=== PATIENT | male | born 1995 | race African-American/Black ===

== ENCOUNTER 2025-05-06 18:06 | Observation (INO) ==
[2025-05-06] MEDS: ACETAMINOPHEN 1,000 MG/100 ML VIAL IV STA (18:36)
[2025-05-06] MEDS: SODIUM CHLORIDE 0.9% 1,000 ML IV ONE (18:36)
[2025-05-06 19:07] LABS: Alanine Aminotransferase 15.0 U/L (7-52); Albumin Globulin Ratio 1.1 (0.9-2); Albumin Level 4.3 gm/dl (3.4-5.0); Alkaline Phosphatase 67.0 U/L (34-104); Anion Gap 9.0 (3-11); Bilirubin,Total 2.2 mg/dl (0.2-1.0); Blood Urea Nitrogen 14.0 mg/dl (6-23); Calcium 9.5 mg/dl (8.6-10.3); Carbon Dioxide 22.0 mmol/L (21-32); Chloride 102.0 mmol/L (98-107); Creatinine Clr Calc Pharmacy 83.7 ml/min; Globulin 3.8 gm/dl (2.5-4.0); Glucose 110.0 mg/dl (70-99(Fasting)); Potassium 3.6 mmol/L (3.5-5.1); Sodium 133.0 mmol/L (136-145); Total Protein 8.1 gm/dl (6.0-8.3)
--- NOTE | 2025-05-06 19:39 | XRay Report ---
Clinical History: Cough Technique: PA and lateral views of the chest were obtained Findings: There are no confluent pulmonary infiltrates. The heart size is within normal limits. No pleural effusion or pneumothorax is seen. There is no definite pulmonary nodule. No fracture is noted. No foreign body is seen Impression: No active disease Electronically signed by Renan Dougherty 05-06-2025 7:36 PM
[2025-05-06 19:41] LABS: Chlamydia pneumoniae PCR Not Detected (NotDetected); Coronavirus 229E PCR Not Detected (NotDetected); Coronavirus CoV-2 (COVID19)PCR Not Detected (NotDetected); Coronavirus HKU1 PCR Not Detected (NotDetected); Coronavirus NL63 PCR Not Detected (NotDetected); Coronavirus OC43PCR Not Detected (NotDetected); Human Metapneumovirus PCR Not Detected (NotDetected); Parainfluenza Virus 1 PCR Not Detected (NotDetected); Parainfluenza Virus 2 PCR Not Detected (NotDetected); Parainfluenza Virus 3 PCR Not Detected (NotDetected); Parainfluenza Virus 4 PCR Not Detected (NotDetected); Respiratory Syncytial VirusPCR Not Detected (NotDetected); Rhinovirus/Enterovirus PCR Not Detected (NotDetected)
[2025-05-06 20:24] LABS: Hematocrit (blood only) 29.5 % (42.0-52.0); Hemoglobin 11.0 g/dL (14.0-18.0); Mean Corpuscular Hemoglobin 31.4 pg (25.0-34.0); Mean Corpuscular Volume 84.3 fL (80.0-100.0); Platelet Count 265 K/uL (130-400); RDW Standard Deviation 41.1 fL (36.4-46.3); Red Blood Count 3.50 M/uL (4.70-6.10); White Blood Count 20.60 K/ul (4.8-10.8)
[2025-05-06 20:25] LABS: Immature Granulocytes # (auto) 0.14 K/uL (0.01-0.20); Immature Granulocytes % (auto) 0.7 %; Polychromasia 1+; Target Cells 3+; Toxic Vacuolation 2+
[2025-05-06] MEDS: OPTIRAY 320 125ml IV ONE (20:27)
--- NOTE | 2025-05-06 20:33 | Emergency Department Note ---
Impression & Plan Enterovirus infection, Leukocytosis ED Provider Note CHIEF COMPLAINT: Fever, flulike symptoms, bloody sputum HISTORY OF PRESENTING ILLNESS: Patient is a 29-year-old male who presents to the emergency department today for complaints of flulike symptoms, fever, bloody sputum. He was seen at [facility] earlier today and tested positive for enterovirus with a leukocytosis. They had given him an injection for headache and he had felt better after. They did refer him here due to the bloody sputum. He denies any known sick contact. He reports his symptoms started about 3 days ago. Patient denies chest pain, sob, breathing difficulties, abdominal pain, headache, fevers/chills, blood in stool or urine, any recent illness, or any recent travel. REVIEW OF SYSTEMS: See HPI for pertinent positives and pertinent negatives. ALLERGIES: See below MEDICATIONS: See below PAST MEDICAL HISTORY: See below PHYSICAL EXAM: VITALS: Vitals are noted on the nurse's note and reviewed by myself. GENERAL: Non toxic, in no acute distress, non-diaphoretic. SKIN: Capillary refill <2 sec. EYES: PERRLA. EOMI. Conjunctivae without injection, sclerae without icterus. NOSE: Patent without discharge. MOUTH: Mucous membranes moist. Uvula midline. Airway patent. NECK: Supple without nuchal rigidity. HEART: Regular rate and rhythm without murmurs gallops or rubs. LUNGS: Clear to auscultation bilaterally without wheezes, rales or rhonchi. No retractions or accessory muscle use. ABDOMEN: Positive bowel sounds x 4. Normal tympanic percussion. Soft, nontender to palpation. MUSCULOSKELETAL: No gross musculoskeletal defects. NEURO: Patient was alert and oriented. No focal neurological deficits. DIFFERENTIAL DIAGNOSIS: Differential diagnosis includes: Viral infections, bacterial infections, group A strep- strep throat/pharyngitis, otitis media, sinusitis, epiglottitis, pertussis, allergic rhinitis, vasomotor rhinitis, GERD, mono, foreign body aspiration, among others. ED COURSE AND MEDICAL DECISION MAKING: HISTORY FROM INDEPENDENT HISTORIAN: History was provided by the patient. MONITOR: Continuous terminal gauger: Order was placed for continuous terminal gauger. Patient was placed on the terminal gauger and continuous pulse ox. Patient was noted to be in normal sinus rhythm at an initial rate of 99 bpm per my interpretation. EKG: EKG was interpreted by myself as normal sinus rhythm at a rate of 82 bpm. INTERPRETATION OF LABS: I interpreted the labs with full lab results as below in the lab section of this note. Laboratory results pertinent to the emergent complaint are discussed in the MDM section below. The patient was advised to follow up with their PCP and/or specialist(s) for further outpatient monitoring and management of any abnormal results. INTERPRETATION OF IMAGING: Imaging studies were interpreted by myself and read by radiology as per the imaging section of this note. The patient was advised to follow up with their PCP and/or specialist(s) for further outpatient management of any non-emergent abnormal findings. CHRONIC MEDICAL/SOCIAL CONDITIONS AFFECTING CARE: No social concerns were identified as barriers to patients care. ESCALATION OF CARE CONSIDERED: I considered admission on this patient due to ill appearance and leukocytosis. CONSULTATIONS: I had a meaningful discussion about this patient with Dr. Shrestha who agrees with my assessment and the treatment plan. I consulted with Dr. Washington for admission to the hospital and patient was accepted. SUMMARY: I examined the patient for complaints of flulike symptoms and hemoptysis. A physical exam and history were performed. Nursing notes, EMR, and medication list were personally reviewed. On exam and history, findings are concerning for pneumonia. Chest x-ray was negative. CBC with leukocytosis with white blood cell count of 20.60. CRP was 5. Lactate was 0.7. Procalcitonin was 0.57. Blood cultures sent to the lab. BioFire negative however positive for rhinovirus and enterovirus at [facility]. Hemoglobin was 11. No thrombocytopenia. CMP without emergent findings. Troponin was 6.7. D-dimer was 6530. CTA PE rule out was ordered and showed no PE. Patient was given 1 L of normal saline and 1 g of IV Tylenol here in the emergency department with improvement in pain and discomfort. Patient started on Rocephin 2 g. Due to the patients leukocytosis and poor appearance, I consulted with Dr. Washington for admission. The patient was accepted. DIAGNOSIS: Leukocytosis, enterovirus TREATMENT PLAN/DISCHARGE INSTRUCTIONS: Admit to hospitalist services. The chart was completed utilizing [employer] voice recognition software.Grammatical errors, random word insertions, pronoun errors, and incomplete sentences are an occasional consequence of this system due to software limitations, ambient noise, and hardware issues.Any formal questions or concerns about the content, text, or information contained within the body of this dictation should be directly addressed to the physician for clarification. Past Med/Surg History Problem List (Updated 05/07/25 @ 22:59 by GUTIERREZ Clarke) Leukocytosis (Acute) Secondary pneumonia Sickle cell anemia Enterovirus infection (Acute) Medical History (Updated 05/07/25 @ 22:59 by GUTIERREZ Clarke) No significant past medical history Surgical History (Updated 05/07/25 @ 03:52 by Dominique Washington DO) No significant past surgical history Family History (Updated 05/07/25 @ 03:52 by Dominique Washington DO) Other Family history non-contributory Social History Smoking Status: Never smoker Hx Alcohol Use: Yes Hx Substance Use: No Preferred Language: Turkmen Communication Ability: Effective Research Spec Required: No Beliefs That Will Affect Care: None Current Living Situation: Other Current Living Situation Comment: 2 roommates Other Information That Helps Us Care for You: No Feels Safe at Home: Yes Safety Concerns: Feels Safe At This Time Assistive Devices: None Allergies Allergies Allergy/AdvReac Type Severity Reaction Status Date / Time No Known Allergies Allergy Unverified 05/06/25 20:28 Home Meds Home Medications Medication Instructions Recorded Confirmed No Known Home Medications 05/06/25 05/06/25 Results & Data (ED) Vital Signs Vital Signs - 24 hr 05/06/25 18:12 05/06/25 19:18 05/06/25 19:20 Temperature 38 C H 36.9 C Temperature Source Temporal Artery Scan Oral Pulse Rate 107 H 99 H Pulse Rate [Apical] 95 H Pulse Rate from SpO2 Sensor Respiratory Rate 18 18 Respiratory Effort / Characteristics Non-Labored Spontaneous Respiratory Depth Normal Blood Pressure 101/58 L Blood Pressure [Left Arm] 93/48 L Blood Pressure Mean 72 Blood Pressure Mean [Left Arm] 63 Pulse Oximetry 96 94 Oxygen Delivery Method Room Air Room Air Sepsis Recent Fever Within 48 Hours Yes Sepsis New/Unexplained Change in Mental Status No Sepsis Action Taken by Nursing No Action Required 05/06/25 19:21 05/06/25 20:00 05/06/25 21:00 Temperature Temperature Source Pulse Rate 96 H 91 H 87 Pulse Rate [Apical] Pulse Rate from SpO2 Sensor 96 H 93 H 88 Respiratory Rate 15 17 20 Respiratory Effort / Characteristics Respiratory Depth Blood Pressure 99/44 L 98/52 L 101/58 L Blood Pressure [Left Arm] Blood Pressure Mean 62 67 72 Blood Pressure Mean [Left Arm] Pulse Oximetry 94 96 97 Oxygen Delivery Method Room Air Sepsis Recent Fever Within 48 Hours Sepsis New/Unexplained Change in Mental Status Sepsis Action Taken by Nursing 05/06/25 21:30 05/06/25 22:00 Temperature Temperature Source Pulse Rate 93 H 91 H Pulse Rate [Apical] Pulse Rate from SpO2 Sensor 93 H 94 H Respiratory Rate 15 16 Respiratory Effort / Characteristics Respiratory Depth Blood Pressure 91/54 L 126/61 Blood Pressure [Left Arm] Blood Pressure Mean 66 82 Blood Pressure Mean [Left Arm] Pulse Oximetry 98 100 Oxygen Delivery Method Sepsis Recent Fever Within 48 Hours Sepsis New/Unexplained Change in Mental Status Sepsis Action Taken by Nursing Laboratory Data 05/07/25 06:20 05/07/25 18:59 Lab Results 05/06/25 05/06/25 Range/Units 18:34 21:12 WBC 20.60 H (4.8-10.8) K/ul RBC 3.50 L (4.70-6.10) M/uL Hgb 11.0 L (14.0-18.0) g/dL Hct 29.5 L (42.0-52.0) % MCV 84.3 (80.0-100.0) fL MCH 31.4 (25.0-34.0) pg MCHC 37.3 H (32.0-36.0) g/dL RDW Std Deviation 41.1 (36.4-46.3) fL RDW Coeff of Vick 13.7 (11.5-14.5) % Plt Count 265 (130-400) K/uL MPV 11.4 (9.4-12.4) fL Immature Gran % (Auto) 0.7 % Neut % (Auto) 79.9 % Lymph % (Auto) 12.5 % [place] % (Auto) 6.5 % Eos % (Auto) 0.2 % Baso % (Auto) 0.2 % Neut # (Auto) 16.35 H (1.40-6.50) K/uL Lymph # (Auto) 2.56 (1.20-3.40) K/uL [place] # (Auto) 1.33 H (0.11-0.59) K/uL Eos # (Auto) 0.05 (0.00-0.50) K/uL Baso # (Auto) 0.05 (0.00-0.20) K/uL Immature Gran # (Auto) 0.14 (0.01-0.20) K/uL Absolute Nucleated RBC 0.13 H (0.00-0.12) K/uL Nucleated RBC % (auto) 0.6 % Blood Smear Review Toxic Vacuolation 2+ Polychromasia 1+ Target Cells 3+ D-Dimer 6530 H* (0-500) ug/L FEU Sodium 133 L (136-145) mmol/L Potassium 3.6 (3.5-5.1) mmol/L Chloride 102 (98-107) mmol/L Carbon Dioxide 22 (21-32) mmol/L Anion Gap 9 (3-11) BUN 14 (6-23) mg/dl Creatinine 1.26 (0.6-1.4) mg/dl Est Cr Clr Drug Dosing 83.7 ml/min eGFR 79.18 BUN/Creatinine Ratio 11.1 (10-20) Glucose 110 H (70-99(Fasting)) mg/dl Lactate 0.7 (0.4-2.0) mmol/L Calcium 9.5 (8.6-10.3) mg/dl Total Bilirubin 2.2 H (0.2-1.0) mg/dl AST 25 (13-39) U/L ALT 15 (7-52) U/L Alkaline Phosphatase 67 (34-104) U/L Troponin I High Sens 6.7 (0-20) pg/ml C-Reactive Protein 5.00 H (0-0.5) mg/dl Total Protein 8.1 (6.0-8.3) gm/dl Albumin 4.3 (3.4-5.0) gm/dl Globulin 3.8 (2.5-4.0) gm/dl Albumin/Globulin Ratio 1.1 (0.9-2) Procalcitonin 0.57 H (0-0.5) ng/ml Adenovirus (PCR) Not Detected (NotDetected) B. pertussis DNA (PCR) Not Detected (NotDetected) B.parapertussis DNA PCR Not Detected (NotDetected) C. pneumoniae DNA (PCR) Not Detected (NotDetected) Coronavirus OC43 (PCR) Not Detected (NotDetected) Coronavirus HKU1 (PCR) Not Detected (NotDetected) Coronavirus 229E (PCR) Not Detected (NotDetected) SARS-CoV-2 (PCR) Not Detected (NotDetected) Coronavirus NL63 (PCR) Not Detected (NotDetected) Human Metapneumovir PCR Not Detected (NotDetected) Influenza Type A (PCR) Not Detected (NotDetected) Influenza Type B (PCR) Not Detected (NotDetected) M. pneumoniae (PCR) Not Detected (NotDetected) Parainfluenza 1 (PCR) Not Detected (NotDetected) Parainfluenza 2 (PCR) Not Detected (NotDetected) Parainfluenza 3 (PCR) Not Detected (NotDetected) Parainfluenza 4 (PCR) Not Detected (NotDetected) RSV (PCR) Not Detected (NotDetected) Entero/Rhino (PCR) Not Detected (NotDetected) Administered Medications Acetaminophen (Acetaminophen 325 Mg Tab) 650 mg PO Q4H PRN PRN Reason: Pain or Fever Stop: 06/06/25 00:44 Last Admin: 05/07/25 19:17 Dose: 650 mg Documented By: devon Admin: 05/07/25 12:47 Dose: 650 mg Documented By: sony Admin: 05/07/25 08:39 Dose: 650 mg Documented By: sony Admin: 05/07/25 03:29 Dose: 650 mg Documented By: KAREN Ceftriaxone Sodium (Rocephin) 2,000 mg in 50 mls @ 100 mls/hr IV Q24H VANIA Stop: 05/09/25 21:59 Last Infusion: 05/07/25 22:35 Dose: Infused Documented By: devon Admin: 05/07/25 22:05 Dose: 100 mls/hr Documented By: devon Discontinued Medications Sodium Chloride (Nss) 1,000 mls @ 999 mls/hr IV .Q1H1M ONE Stop: 05/06/25 19:20 Last Infusion: 05/06/25 20:01 Dose: Infused Documented By: Admin: 05/06/25 18:36 Dose: 999 mls/hr Documented By: rubens Acetaminophen (Ofirmev) 1,000 mg in 100 mls @ 400 mls/hr IV NOW STA Stop: 05/06/25 18:34 Last Infusion: 05/06/25 19:23 Dose: Infused Documented By: Admin: 05/06/25 18:36 Dose: 400 mls/hr Documented By: rubens Ceftriaxone Sodium (Rocephin) 2,000 mg in 50 mls @ 100 mls/hr IV NOW STA Stop: 05/06/25 22:46 Last Infusion: 05/07/25 00:09 Dose: Infused Documented By: Admin: 05/06/25 22:49 Dose: 100 mls/hr Documented By: BO Lactated Ringer's (Lr) 1,000 mls @ 100 mls/hr IV .Q10H VANIA Stop: 05/07/25 21:25 Last Infusion: 05/07/25 22:06 Dose: Infused Documented By: devon Infusion: 05/07/25 12:38 Dose: 100 mls/hr Documented By: ijw Admin: 05/07/25 11:50 Dose: 80 mls/hr Documented By: ijw Infusion: 05/07/25 11:50 Dose: Infused Documented By: ijroseline Admin: 05/07/25 00:58 Dose: 80 mls/hr Documented By: KAREN Ioversol (Optiray 320 125ml) 115 ml IV ONCE ONE Stop: 05/06/25 20:27 Last Admin: 05/06/25 20:27 Dose: 115 ml Documented By: RADHA Ioversol (Optiray 320 100ml) 94 ml IV ONCE ONE Stop: 05/07/25 12:22 Last Admin: 05/07/25 12:21 Dose: 94 ml Documented By: HUGOF Imaging Data Radiologist's Impression: Chest X-Ray 05/06/25 18:21 Clinical History: Cough Technique: PA and lateral views of the chest were obtained Findings: There are no confluent pulmonary infiltrates. The heart size is within normal limits. No pleural effusion or pneumothorax is seen. There is no definite pulmonary nodule. No fracture is noted. No foreign body is seen Impression: No active disease Electronically signed by Renan Dougherty 05-06-2025 7:36 PM Chest CTA 05/06/25 20:09 Exam(s): CTA CHEST IV Amt: 115 ml optiray 320 EXAM: CT Angiography Chest With Intravenous Contrast CLINICAL HISTORY: Evaluate for PE. TECHNIQUE: Axial computed tomographic angiography images of the chest with intravenous contrast. CTDI is 24 mGy and DLP is 516.82 mGy-cm. Automated exposure control was utilized for the study. A dose lowering technique was utilized adhering to the principles of ALARA. MIP reconstructed images were created and reviewed. COMPARISON: No relevant prior studies available. FINDINGS: Limitations: There is respiratory artifact, which degrades image quality on multiple image slices. Pulmonary arteries: Accounting for limitations with respiratory artifact, there is no definite evidence for pulmonary embolism. Aorta: No acute findings. No thoracic aortic aneurysm. Lungs: No focal airspace consolidation. Pleural space: No significant abnormality. No significant effusion. No pneumothorax. Heart: No significant abnormality. No cardiomegaly. No significant pericardial effusion. Bones/joints: No acute fracture. No dislocation. Soft tissues: No significant abnormality. Lymph nodes: No significant abnormality. No enlarged lymph nodes. IMPRESSION: 1. Accounting for limitations with respiratory artifact, there is no definite evidence for pulmonary embolism. 2. No focal airspace consolidation. No pleural effusion or pneumothorax. Electronically signed by: Agus Del Cid MD 05/06/25 21:12 PM Discharge Plan Visit Data Chief Complaint: Flu Like Symptoms Stated Complaint: FLU-LIKE SX, SENT BY [facility] ED Provider: Talon Shrestha ED Midlevel Provider: Ivette aMscorro Discharge Problem: Enterovirus infection, Leukocytosis Patient Disposition: Admitted As Inpatient Condition: Good Discharge Instructions Interventions: ED Discharge Assessment Last Done: 05/07/25 00:10 Discharge Problem: Leukocytosis Qualifiers: Leukocytosis type: unspecified Qualified Code(s): D72.829 - Elevated white blood cell count, unspecified
--- NOTE | 2025-05-06 21:13 | CT Scan Report ---
Exam(s): CTA CHEST IV Amt: 115 ml optiray 320 EXAM: CT Angiography Chest With Intravenous Contrast CLINICAL HISTORY: Evaluate for PE. TECHNIQUE: Axial computed tomographic angiography images of the chest with intravenous contrast. CTDI is 24 mGy and DLP is 516.82 mGy-cm. Automated exposure control was utilized for the study. A dose lowering technique was utilized adhering to the principles of ALARA. MIP reconstructed images were created and reviewed. COMPARISON: No relevant prior studies available. FINDINGS: Limitations: There is respiratory artifact, which degrades image quality on multiple image slices. Pulmonary arteries: Accounting for limitations with respiratory artifact, there is no definite evidence for pulmonary embolism. Aorta: No acute findings. No thoracic aortic aneurysm. Lungs: No focal airspace consolidation. Pleural space: No significant abnormality. No significant effusion. No pneumothorax. Heart: No significant abnormality. No cardiomegaly. No significant pericardial effusion. Bones/joints: No acute fracture. No dislocation. Soft tissues: No significant abnormality. Lymph nodes: No significant abnormality. No enlarged lymph nodes. IMPRESSION: 1. Accounting for limitations with respiratory artifact, there is no definite evidence for pulmonary embolism. 2. No focal airspace consolidation. No pleural effusion or pneumothorax. Electronically signed by: Agus Del Cid MD 05/06/25 21:12 PM
[2025-05-06] MEDS: cefTRIAXone SODIUM 2,000 MG/50 ML BAG IV STA (22:49)
--- NOTE | 2025-05-06 23:04 | History & Physical Report ---
Date of Service May 06, 2025 Assessment & Plan (1) Enterovirus infection: Plan 29yo male with no significant past medical or surgical history presenting with three days of viral symptoms, headache/fever/chills/cough with some hemoptysis/body aches. Marked leukocytosis. #Enterovirus infection -Observation to medical -Isolation precautions -IVF - LR at 100mL/hr x 2L ordered -Tylenol PRN -Zofran PRN History of Present Illness Chief Complaint: flu-like symptoms Primary Care Provider: [facility] Donaldo Nash is a 29yo male with no significan medical or surgical history presenting with three days of flu-like symptoms. Patient reports fever, chills, body aches as well as cough productive for blood-streaked sputum. He has some shortness of breath. Ongoing severe headache. He denies chest pain, nausea, vomiting, diarrhea. 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 No sick contacts. Patient was seen at [facility] and found to be POSITIVE for Enterovirus. ER Course: NSS x 1L Tylenol Ceftriaxone 2gm Allergies Allergy/AdvReac Type Severity Reaction Status Date / Time No Known Allergies Allergy Unverified 05/06/25 20:28 Home Medications Medication Instructions Recorded Confirmed Type No Known Home Medications 05/06/25 05/06/25 History Past Med/Surg History Problem List (Updated 05/07/25 @ 03:53 by Dominique Washington DO) Enterovirus infection Medical History (Updated 05/07/25 @ 03:53 by Dominique Washington DO) No significant past medical history Surgical History (Updated 05/07/25 @ 03:52 by Dominique Washington DO) No significant past surgical history Family History (Updated 05/07/25 @ 03:52 by Dominique Washington DO) Other Family history non-contributory Social History Smoking Status: Never smoker Hx Alcohol Use: Yes Hx Substance Use: No Preferred Language: Maltese Communication Ability: Effective Tobacco Baler Required: No Beliefs That Will Affect Care: None Current Living Situation: Other Current Living Situation Comment: 2 roommates Other Information That Helps Us Care for You: No Feels Safe at Home: Yes Safety Concerns: Feels Safe At This Time Assistive Devices: None Review of Systems Review of Systems: All systems reviewed & are unremarkable except as noted in HPI & below Physical Exam Physical Exam: General: patient resting comfortably, NAD, non-toxic in appearance, AA&O x 4 Skin: warm, dry, intact, no rashes or lesions HEENT: NC/AT, PERRL, EOMI, anicteric sclera, conjunctiva without injection, external ear normal to inspection and nontender, nares patent, moist mucus membranes, dentition intact, no oropharyngeal lesions, neck supple, trachea midline, no LAD, no thyromegaly, no JVD Heart: +S1/S2, regular, no m/r/g Lungs: equal air entry bilaterally, no rales/rhonchi/wheezes Abd: +BS, soft, NT/ND, no masses/organomegaly/ascites Ext: warm, 2+ pulses in UE/LE bilaterally, no clubbing/cyanosis or edema Neuro: nonfocal, patient AA&O x 4, speech intact, no facial droop, moving all extremities on command with equal strength 5/5 Results & Data Results & Data Vital Signs (Past 12 Hours) Vital Signs Temp Pulse Pulse Resp BP BP Pulse Ox 05/06/25 22:00 91 H 16 126/61 100 05/06/25 21:30 93 H 15 91/54 L 98 05/06/25 21:00 87 20 101/58 L 97 05/06/25 20:00 91 H 17 98/52 L 96 05/06/25 19:21 96 H 15 99/44 L 94 05/06/25 19:20 99 H 05/06/25 19:18 36.9 C 95 H 18 93/48 L 94 05/06/25 18:12 38 C H 107 H 18 101/58 L 96 O2 Del Method 05/06/25 22:00 05/06/25 21:30 05/06/25 21:00 05/06/25 20:00 05/06/25 19:21 Room Air 05/06/25 19:20 05/06/25 19:18 Room Air 05/06/25 18:12 Room Air Laboratory Results Laboratory Results WBC 20.60 K/ul (4.8-10.8) H 05/06/25 18:34 RBC 3.50 M/uL (4.70-6.10) L 05/06/25 18:34 Hgb 11.0 g/dL (14.0-18.0) L 05/06/25 18:34 Hct 29.5 % (42.0-52.0) L 05/06/25 18:34 MCV 84.3 fL (80.0-100.0) 05/06/25 18:34 MCH 31.4 pg (25.0-34.0) 05/06/25 18:34 MCHC 37.3 g/dL (32.0-36.0) H 05/06/25 18:34 RDW Std Deviation 41.1 fL (36.4-46.3) 05/06/25 18:34 RDW Coeff of Vick 13.7 % (11.5-14.5) 05/06/25 18:34 Plt Count 265 K/uL (130-400) 05/06/25 18:34 MPV 11.4 fL (9.4-12.4) 05/06/25 18:34 Immature Gran % (Auto) 0.7 % 05/06/25 18:34 Neut % (Auto) 79.9 % 05/06/25 18:34 Lymph % (Auto) 12.5 % 05/06/25 18:34 [place] % (Auto) 6.5 % 05/06/25 18:34 Eos % (Auto) 0.2 % 05/06/25 18:34 Baso % (Auto) 0.2 % 05/06/25 18:34 Neut # (Auto) 16.35 K/uL (1.40-6.50) H 05/06/25 18:34 Lymph # (Auto) 2.56 K/uL (1.20-3.40) 05/06/25 18:34 [place] # (Auto) 1.33 K/uL (0.11-0.59) H 05/06/25 18:34 Eos # (Auto) 0.05 K/uL (0.00-0.50) 05/06/25 18:34 Baso # (Auto) 0.05 K/uL (0.00-0.20) 05/06/25 18:34 Immature Gran # (Auto) 0.14 K/uL (0.01-0.20) 05/06/25 18:34 Absolute Nucleated RBC 0.13 K/uL (0.00-0.12) H 05/06/25 18:34 Nucleated RBC % (auto) 0.6 % 05/06/25 18:34 Toxic Vacuolation 2+ 05/06/25 18:34 Polychromasia 1+ 05/06/25 18:34 Target Cells 3+ 05/06/25 18:34 D-Dimer 6530 ug/L FEU (0-500) H* 05/06/25 18:34 Sodium 133 mmol/L (136-145) L 05/06/25 18:34 Potassium 3.6 mmol/L (3.5-5.1) 05/06/25 18:34 Chloride 102 mmol/L (98-107) 05/06/25 18:34 Carbon Dioxide 22 mmol/L (21-32) 05/06/25 18:34 Anion Gap 9 (3-11) 05/06/25 18:34 BUN 14 mg/dl (6-23) 05/06/25 18:34 Creatinine 1.26 mg/dl (0.6-1.4) 05/06/25 18:34 Est Cr Clr Drug Dosing 83.7 ml/min 05/06/25 18:34 eGFR 79.18 05/06/25 18:34 BUN/Creatinine Ratio 11.1 (10-20) 05/06/25 18:34 Glucose 110 mg/dl (70-99(Fasting)) H 05/06/25 18:34 Lactate 0.7 mmol/L (0.4-2.0) 05/06/25 21:12 Calcium 9.5 mg/dl (8.6-10.3) 05/06/25 18:34 Total Bilirubin 2.2 mg/dl (0.2-1.0) H 05/06/25 18:34 AST 25 U/L (13-39) 05/06/25 18:34 ALT 15 U/L (7-52) 05/06/25 18:34 Alkaline Phosphatase 67 U/L (34-104) 05/06/25 18:34 Troponin I High Sens 6.7 pg/ml (0-20) 05/06/25 18:34 C-Reactive Protein 5.00 mg/dl (0-0.5) H 05/06/25 18:34 Total Protein 8.1 gm/dl (6.0-8.3) 05/06/25 18:34 Albumin 4.3 gm/dl (3.4-5.0) 05/06/25 18:34 Globulin 3.8 gm/dl (2.5-4.0) 05/06/25 18:34 Albumin/Globulin Ratio 1.1 (0.9-2) 05/06/25 18:34 Procalcitonin 0.57 ng/ml (0-0.5) H 05/06/25 18:34 Adenovirus (PCR) Not Detected (NotDetected) 05/06/25 18:34 B. pertussis DNA (PCR) Not Detected (NotDetected) 05/06/25 18:34 B.parapertussis DNA PCR Not Detected (NotDetected) 05/06/25 18:34 C. pneumoniae DNA (PCR) Not Detected (NotDetected) 05/06/25 18:34 Coronavirus OC43 (PCR) Not Detected (NotDetected) 05/06/25 18:34 Coronavirus HKU1 (PCR) Not Detected (NotDetected) 05/06/25 18:34 Coronavirus 229E (PCR) Not Detected (NotDetected) 05/06/25 18:34 SARS-CoV-2 (PCR) Not Detected (NotDetected) 05/06/25 18:34 Coronavirus NL63 (PCR) Not Detected (NotDetected) 05/06/25 18:34 Human Metapneumovir PCR Not Detected (NotDetected) 05/06/25 18:34 Influenza Type A (PCR) Not Detected (NotDetected) 05/06/25 18:34 Influenza Type B (PCR) Not Detected (NotDetected) 05/06/25 18:34 M. pneumoniae (PCR) Not Detected (NotDetected) 05/06/25 18:34 Parainfluenza 1 (PCR) Not Detected (NotDetected) 05/06/25 18:34 Parainfluenza 2 (PCR) Not Detected (NotDetected) 05/06/25 18:34 Parainfluenza 3 (PCR) Not Detected (NotDetected) 05/06/25 18:34 Parainfluenza 4 (PCR) Not Detected (NotDetected) 05/06/25 18:34 RSV (PCR) Not Detected (NotDetected) 05/06/25 18:34 Entero/Rhino (PCR) Not Detected (NotDetected) 05/06/25 18:34 Impressions Chest X-Ray 05/06/25 18:21 Clinical History: Cough Technique: PA and lateral views of the chest were obtained Findings: There are no confluent pulmonary infiltrates. The heart size is within normal limits. No pleural effusion or pneumothorax is seen. There is no definite pulmonary nodule. No fracture is noted. No foreign body is seen Impression: No active disease Electronically signed by Renan Dougherty 05-06-2025 7:36 PM Chest CTA 05/06/25 20:09 Exam(s): CTA CHEST IV Amt: 115 ml optiray 320 EXAM: CT Angiography Chest With Intravenous Contrast CLINICAL HISTORY: Evaluate for PE. TECHNIQUE: Axial computed tomographic angiography images of the chest with intravenous contrast. CTDI is 24 mGy and DLP is 516.82 mGy-cm. Automated exposure control was utilized for the study. A dose lowering technique was utilized adhering to the principles of ALARA. MIP reconstructed images were created and reviewed. COMPARISON: No relevant prior studies available. FINDINGS: Limitations: There is respiratory artifact, which degrades image quality on multiple image slices. Pulmonary arteries: Accounting for limitations with respiratory artifact, there is no definite evidence for pulmonary embolism. Aorta: No acute findings. No thoracic aortic aneurysm. Lungs: No focal airspace consolidation. Pleural space: No significant abnormality. No significant effusion. No pneumothorax. Heart: No significant abnormality. No cardiomegaly. No significant pericardial effusion. Bones/joints: No acute fracture. No dislocation. Soft tissues: No significant abnormality. Lymph nodes: No significant abnormality. No enlarged lymph nodes. IMPRESSION: 1. Accounting for limitations with respiratory artifact, there is no definite evidence for pulmonary embolism. 2. No focal airspace consolidation. No pleural effusion or pneumothorax. Electronically signed by: Agus Del Cid MD 05/06/25 21:12 PM PG Care Time/CCT Total # of Minutes Spent Total Time Spent with Patient: Total time spent is greater than 50% in coordination of care (as documented) at patient's floor/unit and/or counseling patient: Coding Level of Care Code 71292 INT INP/OBS CARE 2/55MIN Diagnoses Enterovirus infection B34.1
[2025-05-07] MEDS ORDERED: DOCUSATE SODIUM 100 MG CAP PO PRN (00:45)
[2025-05-07] MEDS ORDERED: ONDANSETRON INJ 2 MG/ML 2 ML VIAL IV PRN (00:45)
[2025-05-07] MEDS: LACTATED RINGER'S 1,000 ML IV SCH (00:58)
[2025-05-07] MEDS: ACETAMINOPHEN 325 MG TAB PO PRN (03:29)
[2025-05-07 07:10] LABS: Alanine Aminotransferase 13.0 U/L (7-52); Albumin Level 3.9 gm/dl (3.4-5.0); Alkaline Phosphatase 57.0 U/L (34-104); Anion Gap 6.0 (3-11); Bilirubin,Total 1.8 mg/dl (0.2-1.0); Blood Urea Nitrogen 15.0 mg/dl (6-23); Calcium 8.4 mg/dl (8.6-10.3); Carbon Dioxide 24.0 mmol/L (21-32); Chloride 104.0 mmol/L (98-107); Creatinine Clr Calc Pharmacy 93.1 ml/min; Glucose 113.0 mg/dl (70-99(Fasting)); Potassium 3.6 mmol/L (3.5-5.1); Sodium 134.0 mmol/L (136-145); Total Protein 7.1 gm/dl (6.0-8.3)
[2025-05-07 07:57] LABS: Hematocrit (blood only) 33.0 % (42.0-52.0); Hemoglobin 12.0 g/dL (14.0-18.0); Mean Corpuscular Hemoglobin 30.0 pg (25.0-34.0); Mean Corpuscular Volume 82.5 fL (80.0-100.0); Platelet Count 250 K/uL (130-400); RDW Standard Deviation 41.4 fL (36.4-46.3); Red Blood Count 4.00 M/uL (4.70-6.10); White Blood Count 26.15 K/ul (4.8-10.8)
[2025-05-07 08:37] LABS: ALC (manual) 2.62 K/uL (1.2-3.4); ANC (manual) 20.66 K/uL (1.4-6.5); Polychromasia 1+; Target Cells 3+; Toxic Vacuolation 2+
[2025-05-07] MEDS: OPTIRAY 320 100ml IV ONE (12:21)
--- NOTE | 2025-05-07 12:50 | CT Scan Report ---
CT SCAN OF THE ABDOMEN AND PELVIS WITH IV CONTRAST CLINICAL HISTORY: Right lower quadrant abdominal pain. Fever and leukocytosis. COMPARISON STUDY: No priors. TECHNIQUE: Following the IV administration of 94 cc of Optiray 320, CT scan of the abdomen and pelvi s is performed from the lung bases to the proximal femora. Images are reviewed in the axial, sagittal , and coronal planes. IV contrast was administered without complication. A dose lowering technique wa s utilized adhering to the principles of ALARA. CT DOSE: 483.45 mGy.cm FINDINGS: Lung bases: The heart is normal in size and without pericardial effusion. There is mild bibasilar sca rring/atelectasis. No airspace consolidation or pleural effusion is seen. There is cystic change vers us mild emphysema noted at the lung bases. Liver: The contrast-enhanced liver is normal in size, contour, and attenuation. There is no intrahepa tic biliary ductal dilatation. The hepatic veins and portal veins are patent. Gallbladder: Layering hyperdense material in the gallbladder could represent gallstones versus cristina ously excreted contrast Spleen: The spleen is atrophic and calcified. Pancreas: Unremarkable. Adrenal glands: Unremarkable. Kidneys: The contrast enhanced kidneys are normal in size and without hydronephrosis. The kidneys enh ance symmetrically. Abdominal vasculature: The abdominal aorta is normal in course and caliber. Bowel: There is moderate constipation. No bowel obstruction is seen. There are fluid-filled loops of small bowel. No bowel wall thickening or surrounding inflammation is seen. The appendix is normal as visualized. Peritoneum: There is no intraperitoneal free air or abdominal ascites. Lymphadenopathy: None. Pelvic viscera: The bladder is distended but otherwise normal as imaged. The urine appears slightly h yperdense, likely related to excreted contrast. The prostate and seminal vesicles are normal as visua lized. Skeletal structures: No lytic or blastic lesions are seen. IMPRESSION: 1. There are fluid-filled loops of small bowel, with no significant bowel wall thickening or surround ing inflammation. This is a nonspecific finding and could be seen in the setting of an enteritis. Cor relate clinically. 2. Moderate constipation. 3. Normal appendix. 4. The spleen is atrophic and densely calcified, which can be seen in the setting of sickle cell dise ase. Correlate with the medical history. 5. There are small pulmonary cysts versus mild emphysematous change noted at the lung bases. 6. There is cholelithiasis versus vicariously excreted contrast within the gallbladder. 7. Additional findings as above. ACT 112: Negative or not required by law. Electronically signed by: Juan Carlos Hawkins M.D. 05/07/2025 12:48 PM
--- NOTE | 2025-05-07 13:28 | Hospitalist Progress Note ---
Date of Service May 07, 2025 Assessment & Plan (1) Enterovirus infection: Plan: Febrile illness, 3 days of fever/chills Was enterovirus positive, however despite having a BioFire negative on several days of symptoms continues to have high fevers and appears clinically unwell. Procalcitonin is elevated suggestive of bacterial secondary infection. Could be slight rise from renal dysfunction although his creatinine is at baseline, lactate was normal, he is voiding normally. He endorses intermittent headaches which come and go with his fever in the last 3 days. He reports in the last 3 months he has had occasional morning headaches which go away but have awakened him from sleep. 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 He did have fevers around that time which improved and he thought was a viral illness and recovered from this. He reports he felt well through the summer and early fall and did not have tertian/~q48 hour fever suggestive of Plasmodium vivax. He has been here for several months and is outside of the expected window for open of symptoms related to dengue. CHIKV unlikely and no joint pain. HIV pending. AST/ALT are not elevated suggestive of hepatitis. CTAchest with no evidence of PE. No airspace consolidations. No pleural effusion or pneumothorax CTA/P: Fluid-filled loops of small bowel consistent with enteritis. Normal appendix. Moderate constipation. Small pulmonary cyst versus mild emphysematous changes at lung bases. Cholelithiasis versus vicarious excreted contrast within the gallbladder. Spleen is atrophic and densely calcified consistent with sickle cell disease. Total bilirubin is elevated to chest from some intravascular hemolysis related to his sickle disease versus sickle trait. Transaminitis and alk phos are not elevated, profile is not consistent with obstructive biliary disease Peripheral smear added. Target cells, polychromasia, irregular cells noted compatible with SC versus hemoglobin C disease. No parasites noted Hemoglobin electrophoresis pending CTA/P shows calcified atrophic spleen consistent with sickle disease.. Some enteritis. He denies diarrhea. Bilirubin is elevated, suspect some hemolysis. He denies bleeding Rocephin continued HIV pending. Monospot pending CMV/EBV titers deferred pending above workup He reports he does not think that he has had any vaccinations. 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 1) ?LP for definitive bacterial meningitis eval. He does not have nuchal rigidity at the be dside, and has had some intermittent photosensitivity although none at time of reassessment. Unlikely to be the cause of his headaches in the last 3 months as he would have had severe deterioration over that timeframe; however he has acutely worsened on the last 3 days with new intermittent photophobia may be functionally asplenic and unvaccinated and at increased risk of this. Agree that on exam meningitis is lower on the differential however do recommend getting this to fully exclude diagnosis. IR guided LP ordered Headache - He reports intermittent headache of around 3 months. Denies vision change. No focal weakness or extremity changes. No loss of consciousness. No history of seizures. In the previous 3 months he has had headache in the morning which sometimes awaken him from sleep. He reports that intermittently his headache will get worse sometimes along with his fevers and sweats and then periodically gets better. Headache is worse in the last 3 days with this illness. He has had some new photosensitivity which has waxed and waned in the last 2 days CThead pending for new onset headache with morning awakenings. Meningeal evaluation as above Sickle cell disease versus SC disease Suspected SC versus C disease based on peripheral smear Hemoglobinopathy panel pending send out, this is a reference test and will not be available this hospitalization Continue IV fluids, hydration. Does not have severe pain suggestive of vaso- occlusive crisis although is with some hyperbilirubinemia and anemia suggestive of some hemolysis CTA/P shows atrophic calcified spleen consistent with sickle cell disease. He is at risk for functional asplenia Has not yet had his routine vaccinations and is a student. Recommend vaccination plan to include pneumococcal, haemophilus influenza B, MenACWY + MenB & strep pneumo DVT prophylaxis: Lovenox held pending evaluation for possible LP (2) Sickle cell anemia: (3) Secondary pneumonia: Admission and Anticipated Discharge Date Admission Date: May 06, 2025 Jensen Fulton was seen at the bedside. He reports he continues to have fevers and chills, his cough has been present for around 4 days. He feels generally very poor and sweaty today. He feels that he has had a headache which has continued to come and go sometimes along with his fever and sweating. Endorses intermittent headache which when it is occurring is a little sensitive to light however at time of assessment he reports his headache is fading, is able to move his neck with a full range of motion with no discomfort/pain, and denies photosensitivity/photosensitivity at time of visit. No vision change. No focal weakness He reports he came to [facility] from [facility]. He was last in [facility] 6 months ago and notes that he did well and felt well throughout the end of summer and fall. He reports he is a twin. His twin brother never gets sick, but he reports he is frequently sick with viral illnesses which feel like this but usually only last 2 to 3 days. He was last sick with this 6 months ago before coming to the [place]. He is not sure exactly what has been done for him before, noting that their facilities are not very good but that he has generally always improved in about 3 days and his current symptoms are atypical for him. Reports he does not believe he has had any vaccinations, did not get any of these for school. . He does not think he had any vaccinations as a child. He was set to get routine vaccinations this April through [facility] but has not yet done this He denies diarrhea. Did have a cough with a scant amount of pink sputum. Denies other productive cough. Denies dysuria/urinary symptoms Denies rash/skin changes. Denies easy bruising He is very tender in the right lower quadrant, feels this is an ache. He has no right upper quadrant tenderness. He is fatigued and reports he feels generally unwell but other than his cough and abdominal discomfort does not feel he has any specific areas of symptoms. He reports based on a workup he had in [facility] they told him that he might have sickle cell or SA disease, but he is not sure and does not think they were sure at the time. He denies history of chest syndrome. He does not currently have any chest pain or shortness of breath. He denies muscle aches/body aches/thigh aches Physical Exam Physical Exam: General: A&Ox3. NAD. Cooperative. Skin is warm, moist HEENT: Atraumatic, normocephalic. Vision and hearing grossly intact. Slight scleral icterus. He is able to rotate his neck to the left and right, flex chin to chest, and extend at the neck without any pain at time of assessment although he does report that when his fever is high if he does this he has some discomfort in his shoulders and neck which was present about an hour before exam. pupils are equal and reactive to light without photosensitivity. Endorses slight foot sensitivity in the morning which improved following Tylenol Pulm: CTAB A&P. -wheezes, -rales, -rhonchi. Symmetrical chest rise. No increased work of breathing. No respiratory distress. Cardiac: Regular, tachycardic, -mrg. Radial pulses intact and symmetrical. Abdominal: Right lower quadrant tender to palpation. No rebound or guarding. No right upper quadrant tenderness Extremities: Warm, dry Results & Data Results & Data Vital Signs (Past 12 Hours) Vital Signs Temp Pulse Resp BP Pulse Ox O2 Del Method 05/07/25 11:15 37.9 C H 100 H 18 108/62 97 Room Air 05/07/25 08:45 Room Air 05/07/25 08:08 38.5 C H 117 H 16 133/72 98 Room Air 05/07/25 04:15 37.4 C 103 H 104/55 L 05/07/25 03:37 39 C H 110 H 18 92/52 L 98 Room Air PG Care Time/CCT Total # of Minutes Spent Total Time Spent with Patient: Total time spent is greater than 50% in coordination of care (as documented) at patient's floor/unit and/or counseling patient: Coding Level of Care Code 76711 SUB INP/OBS CARE 3/50MIN Diagnoses Enterovirus infection B34.1 Sickle cell anemia D57.1 Secondary pneumonia J18.9
[2025-05-07 15:25] LABS: EBV Nuclear Antigen IgG Ab Positive; EBV Nuclear Antigen IgG Quant 315.0 U/mL (< 18.0)
[2025-05-07 15:26] LABS: EBV Early Antigen IgG Ab Negative (Negative); EBV Early Antigen IgG Quant < 5.0 U/mL (< 9.0)
[2025-05-07 15:27] LABS: EBV IgG Antibody Positive; EBV IgG Quant 118.0 U/mL (< 18.0); EBV IgM Antibody Negative; EBV IgM Quant < 10.0 U/mL (< 36.0)
--- NOTE | 2025-05-07 16:37 | CT Scan Report ---
EXAMINATION: Head CT without CLINICAL HISTORY: First morning headaches PRIORS: None TECHNIQUE: Contiguous axial images were obtained through the head without the use of intravenous contrast. Sagittal and coronal reformations are supplied. FINDINGS: Appropriate parenchymal volume is noted. Ferrera-white differentiation is preserved. No edema or midline shift. No intra-axial or extra-axial hemorrhage. Ventricles are normal in size and configuration. Brainstem and cerebellum have a normal appearance. Calvarium unremarkable. Paranasal sinuses and mastoid air cells are well-pneumatized. Globes are intact. No retrobulbar abnormality. IMPRESSION: No CT evidence of an acute intracranial abnormality. If clinically appropriate, brain MRI could be obtained as appropriate. Electronically signed by Krystle Valladares 05-07-2025 4:36 PM
[2025-05-07 18:58] LABS: CSF Count Tube # 3; CSF Xanthrochromic No xanthochromia; Red Blood Cell CSF Manual 1 (0); White Blood Cell CSF Manual 1 (0-5)
--- NOTE | 2025-05-07 20:03 | Procedure Note ---
Procedure Note Date of Service May 07, 2025 Lumbar puncture procedure note Indication: Rule out bacterial meningitis Attending physician: Shun Maravilla MD Assisting provider: Heike Vogt PA-C Consent obtained: Verbal and written consent obtained at bedside preprocedure Consent: Name and date of prior to procedure. Discussed risk/benefits of procedure. Specifically risks including bleeding, infection, pain, nerve injury, postdural headache were reviewed. Benefits include definitive evaluation for bacterial meningitis. Risk of not performing the procedure include delayed diagnosis, reduced culture yield if meningitis is present due to empiric antibiotics. 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 Agrees to bedside LP. Name date of verified. Hands were washed and and cleaned with alcohol bottle inspector prior to procedure. Patient was placed in the right lateral decubitus position. L3-L4 space was identified via palpation of the iliac crests and skin indentation was made with a needle to ned target area of needle entry. skin was cleaned 3X with chlorhexidine prep. This was allowed to dry completely for 5 minutes prior to procedure. Surgical, mask, protective eyewear, sterile gown, and sterile gloves were donned in the usual fashion. Fenestrated drape in sterile fashion. Local anesthesia was obtained with 1% lidocaine wheal. Aspiration was attempted prior to applying lidocaine, there was no flash of blood. A 20-gauge 3.5 inch spinal needle was placed in the L3-L4 lumbar interspace and advanced slowly with periodic stylette checks. Following a a slight release of pressure styled was withdrawn and clear CSF was obtained. No blood/clouding was noted. 4 tubes were collected with approximately 3-5 cc in each and sent for analysis. Stylet was replaced and needle was withdrawn. Sterile Band-Aid was placed over the puncture site. Patient had no immediate complications, no pain, worsened headache headache and tolerated the procedure well. No bleeding was observed. [place] Procedure Codes (Charges) Lumbar Puncture Lumbar Puncture, Diagnostic: 47324 Lumbar Puncture, Diagnostic Coding CPT Codes Lumbar Puncture - Lumbar Puncture, Diagnostic: 72025 Lumbar Puncture, Diagnostic ([id number]) Additional Codes Date of Service ([email or web address].SURGERY)
[2025-05-07 20:21] LABS: Cryptococcus neoformans/ga PCR Not Detected (NotDetected); Escherichia coli K1 PCR Not Detected (NotDetected); Haemophilius influenzae PCR Not Detected (NotDetected); Herpes Simplex Virus 1 PCR Not Detected (NotDetected); Herpes Simplex Virus 2 PCR Not Detected (NotDetected); Human Herpes Virus 6 PCR Not Detected (NotDetected); Human Parechovirus PCR Not Detected (NotDetected); Listeria monocytogenes PCR Not Detected (NotDetected); Neisseria meningitidis PCR Not Detected (NotDetected); Streptococcus agalactiae PCR Not Detected (NotDetected); Streptococcus pneumoniae PCR Not Detected (NotDetected)
--- NOTE | 2025-05-07 21:28 | Electrocardiogram Report ---
Test Reason : Blood Pressure : */* mmHG Vent. Rate : 82 BPM Atrial Rate : 82 BPM P-R Int : 152 ms QRS Dur : 90 ms QT Int : 368 ms P-R-T Axes : 84 84 66 degrees QTcB Int : 429 ms Normal sinus rhythm Normal ECG No previous ECGs available Confirmed by Kobi Perez ([id number]) on 05/07/2025 9:28:23 PM Referred By: [facility] Confirmed By: Kobi Perez
[2025-05-07] MEDS: cefTRIAXone SODIUM 2,000 MG/50 ML BAG IV SCH (22:05)
--- NOTE | 2025-05-08 09:06 | Infectious Disease Consult ---
Date of Consultation May 08, 2025 Assessment & Plan (1) Enterovirus infection: (2) Leukocytosis: Plan Problems: #Rhinovirus/enterovirus #Leukocytosis #Fevers #Concern for hemoglobin SC or hemoglobin C disease Micro: 05/07 CSF WBC 1, RBC 1, protein 29, glucose 64 Bacterial cx: NGTD. GS no org Fungal cx: pending AFB cx: pending Meningitis/encephalitis PCR panel: neg 05/07 HIV screen: neg 05/07 Monospot neg 05/07 EBV panel: VCA IgM -, VCA IgG +, EBNA +, EA - 05/06 BCx x2: NGTD Abx: Ceftriaxone 05/06 - present 29 yo M with no significant PMH who presented on 05/06 with flu-like symptoms x 3 days, fever, bloody sputum. He had been seen at [facility] earlier that day and tested positive for rhinovirus/enterovirus. They had given him an injection for headache, and he was referred to the ED due to bloody sputum. He denied chest pain, shortness of breath, abd pain, sick contacts or recent travel. On presentation, pt was febrile to 38, HR 107, BP 101/58, RR 18, 96% on room air. Labs showed WBC 20.6, Tbili 2.2, D-dimer 6530, CRP 5, procal 0.57, RVP negative. CT PE with no definite evidence for PE, no focal airspace consolidation, no pleural effusion. CTAP with IV contrast showed fluid-filled loops of small bowel with no significant bowel wall thickening or surrounding inflammation, nonspecific and could be seen in the setting of an enteritis; spleen is atrophic and densely calcified which can be seen in the setting of sickle cell disease. Small pulmonary cysts vs mild emphysematous change at lung bases. Cholelithiasis vs vicariously excreted contrast within gallbladder. Pt was started on ceftriaxone. Due to complaint of intermittent headache and photosensitivity, persistent fevers, he underwent CT head with no evidence of an acute intracranial abnormality, and LP on 05/07 which demonstrated WBC 1, RBC 1, protein 29.1, meningitis/encephalitis PCR panel negative. Monospot negative, and EBV panel indicating prior infection. HIV screen negative. WBC uptrended to 28 on 05/08. On my evaluation 05/08, pt reports he is feeling a little better. Headache resolved, although still feels some pain in his neck. Denies abd pain, diarrhea. Reports he has been coughing and bringing up phlegm, sometimes with a little bit of blood. Feels like he has fluid in his ears. He is from [facility] and moved here 6 months ago. He reports that since childhood, he has been admitted to the hospital 4-5 times a year for fevers, with different diagnoses such as typhoid, malaria. Has previously been told he had some sort of sickle cell disease/trait. Does not believe he has had vaccinations in the past, and is planning to get his vaccinations before 05/30, prior to the start of the semester. 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 Denies animal or water exposures in [place]. Denies a prior history of TB or TB exposures. Here, he lives with two roommates and a dog. Denies other animal contacts, no hiking, no recent insect bites. Discussion: Pt with recent diagnosis of rhinovirus/enterovirus, with uptrending WBC. CT head, chest, abd, pelvis without obvious source of infection. CSF looked unremarkable. LFTs relatively unremarkable aside from elevated Tbili (hemolysis?), no thrombocytopenia. Feeling some improvement 05/08, despite uptrending WBC. Wonder if pt is having a particularly strong/unusual reaction to a viral illness, in the setting of some sickle cell disease. Recommendations: - Consider discontinuation of ceftriaxone as we do not have a bacterial source of infection we are treating - Agree with obtaining routine vaccinations, plus pneumococcal, Hib, and meningococcal vaccines - Trend WBC, follow-up pending studies Please note that ID does not round or write notes over the weekend. If questions or concerns arise, please contact the Infectious Disease Call Center and ask to speak with the covering ID physician. Consultation Information Consultation was provided via telemedicine using two-way real-time interactive telecommunication between the patient and the telemedicine provider. For the duration of the visit, the provider was performing the assessment from a different facility than the patient. This includesuse of bluetooth stethoscope forauscultationperformed by the telepresenter that the telemedicine provider can hear if described in the physical exam. Rail Maintenance Worker contact information: Please call [facility] Call Center . (Phone Number For Physician Use Only) After establishing a telemedicine visit, patient was: Patient was verified with two unique identifiers, Patient/authorized rep acknowledged consent and understanding and Gave permission to continue telehealth session Time Spent with Patient: Initial => 55 min History of Present Illness Reason for Consultation: Leukocytosis, functional asplenia Attending Physician: Shun Maravilla MD History of Present Illness 29 yo M with no significant PMH who presented on 05/06 with flu-like symptoms x 3 days, fever, bloody sputum. He had been seen at [facility] earlier that day and tested positive for rhinovirus/enterovirus. They had given him an injection for headache, and he was referred to the ED due to bloody sputum. He denied chest pain, shortness of breath, abd pain, sick contacts or recent travel. On presentation, pt was febrile to 38, HR 107, BP 101/58, RR 18, 96% on room air. Labs showed WBC 20.6, Tbili 2.2, D-dimer 6530, CRP 5, procal 0.57, RVP negative. CT PE with no definite evidence for PE, no focal airspace consolidation, no pleural effusion. CTAP with IV contrast showed fluid-filled loops of small bowel with no significant bowel wall thickening or surrounding inflammation, nonspecific and could be seen in the setting of an enteritis; spleen is atrophic and densely calcified which can be seen in the setting of sickle cell disease. Small pulmonary cysts vs mild emphysematous change at lung bases. Cholelithiasis vs vicariously excreted contrast within gallbladder. Pt was started on ceftriaxone. Due to complaint of intermittent headache and photosensitivity, persistent fevers, he underwent CT head with no evidence of an acute intracranial abnormality, and LP on 05/07 which demonstrated WBC 1, RBC 1, protein 29.1, meningitis/encephalitis PCR panel negative. Monospot negative, and EBV panel indicating prior infection. HIV screen negative. WBC uptrended to 28 on 05/08. On my evaluation today, pt reports he is feeling a little better. Headache resolved, although still feels some pain in his neck. Denies abd pain, diarrhea. Reports he has been coughing and bringing up phlegm, sometimes with a little bit of blood. Feels like he has fluid in his ears. He is from [place] and moved here 6 months ago. He reports that since childhood, he has been admitted to the hospital 4-5 times a year for fevers, with different diagnoses such as typhoid, malaria. Has previously been told he had some sort of sickle cell disease/trait. Does not believe he has had vaccinations in the past, and is planning to get his vaccinations before 05/30, prior to the start of the semester. 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 Denies animal or water exposures in [facility]. Denies a prior history of TB or TB exposures. Here, he lives with two roommates and a dog. Denies other animal contacts, no hiking, no recent insect bites. Allergies Allergy/AdvReac Type Severity Reaction Status Date / Time No Known Allergies Allergy Unverified 05/06/25 20:28 Home Medications Medication Instructions Recorded Confirmed Type No Known Home Medications 05/06/25 05/06/25 History Patient History Medical History (Updated 05/07/25 @ 22:59 by GUTIERREZ Clarke) No significant past medical history Surgical History (Updated 05/07/25 @ 03:52 by Dominique Washington DO) No significant past surgical history Family History (Updated 05/07/25 @ 03:52 by Dominique Washington DO) Other Family history non-contributory Social History Smoking Status: Never smoker Hx Alcohol Use: Yes Hx Substance Use: No Preferred Language: Australian Communication Ability: Effective 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 Physical Exam Physical Exam: GEN: laying in bed in NAD. HEENT: full ROM of neck with some pain RESP: No increased work of breathing ABD: Soft, non-distended. Non-tender to palpation. SKIN: No lesions or rashes NEURO: Alert and oriented. Answers all questions appropriately. Speech not slurred. PSYCH: Normal mood, affect appropriate. Results & Data Vital Signs (Past 12 Hours) Vital Signs Temp Pulse Resp BP Pulse Ox O2 Del Method 05/08/25 07:30 37.2 C 85 18 92/53 L 95 Room Air 05/08/25 01:15 38.2 C H 94 H 16 118/63 99 Room Air 05/08/25 01:15 Room Air 05/08/25 00:00 38.3 C H 106 H 20 111/59 L 97 Room Air Laboratory Results [facility] 05/07/25 18:59 Glucose 102 H Diagnostic Findings Chest X-Ray 05/06/25 18:21 Clinical History: Cough Technique: PA and lateral views of the chest were obtained Findings: There are no confluent pulmonary infiltrates. The heart size is within normal limits. No pleural effusion or pneumothorax is seen. There is no definite pulmonary nodule. No fracture is noted. No foreign body is seen Impression: No active disease Electronically signed by Renan Dougherty 05-06-2025 7:36 PM Chest CTA 05/06/25 20:09 Exam(s): CTA CHEST IV Amt: 115 ml optiray 320 EXAM: CT Angiography Chest With Intravenous Contrast CLINICAL HISTORY: Evaluate for PE. TECHNIQUE: Axial computed tomographic angiography images of the chest with intravenous contrast. CTDI is 24 mGy and DLP is 516.82 mGy-cm. Automated exposure control was utilized for the study. A dose lowering technique was utilized adhering to the principles of ALARA. MIP reconstructed images were created and reviewed. COMPARISON: No relevant prior studies available. FINDINGS: Limitations: There is respiratory artifact, which degrades image quality on multiple image slices. Pulmonary arteries: Accounting for limitations with respiratory artifact, there is no definite evidence for pulmonary embolism. Aorta: No acute findings. No thoracic aortic aneurysm. Lungs: No focal airspace consolidation. Pleural space: No significant abnormality. No significant effusion. No pneumothorax. Heart: No significant abnormality. No cardiomegaly. No significant pericardial effusion. Bones/joints: No acute fracture. No dislocation. Soft tissues: No significant abnormality. Lymph nodes: No significant abnormality. No enlarged lymph nodes. IMPRESSION: 1. Accounting for limitations with respiratory artifact, there is no definite evidence for pulmonary embolism. 2. No focal airspace consolidation. No pleural effusion or pneumothorax. Electronically signed by: Agus Del Cid MD 05/06/25 21:12 PM Abdomen/Pelvis CT 05/07/25 11:24 CT SCAN OF THE ABDOMEN AND PELVIS WITH IV CONTRAST CLINICAL HISTORY: Right lower quadrant abdominal pain. Fever and leukocytosis. COMPARISON STUDY: No priors. TECHNIQUE: Following the IV administration of 94 cc of Optiray 320, CT scan of the abdomen and pelvis is performed from the lung bases to the proximal femora. Images are reviewed in the axial, sagittal, and coronal planes. IV contrast was administered without complication. A dose lowering technique was utilized adhering to the principles of ALARA. CT DOSE: 483.45 mGy.cm FINDINGS: Lung bases: The heart is normal in size and without pericardial effusion. There is mild bibasilar scarring/atelectasis. No airspace consolidation or pleural effusion is seen. There is cystic change versus mild emphysema noted at the lung bases. Liver: The contrast-enhanced liver is normal in size, contour, and attenuation. There is no intrahepatic biliary ductal dilatation. The hepatic veins and portal veins are patent. Gallbladder: Layering hyperdense material in the gallbladder could represent gallstones versus vicariously excreted contrast Spleen: The spleen is atrophic and calcified. Pancreas: Unremarkable. Adrenal glands: Unremarkable. Kidneys: The contrast enhanced kidneys are normal in size and without hydronephrosis. The kidneys enhance symmetrically. Abdominal vasculature: The abdominal aorta is normal in course and caliber. Bowel: There is moderate constipation. No bowel obstruction is seen. There are fluid-filled loops of small bowel. No bowel wall thickening or surrounding inflammation is seen. The appendix is normal as visualized. Peritoneum: There is no intraperitoneal free air or abdominal ascites. Lymphadenopathy: None. Pelvic viscera: The bladder is distended but otherwise normal as imaged. The urine appears slightly hyperdense, likely related to excreted contrast. The prostate and seminal vesicles are normal as visualized. Skeletal structures: No lytic or blastic lesions are seen. IMPRESSION: 1. There are fluid-filled loops of small bowel, with no significant bowel wall thickening or surrounding inflammation. This is a nonspecific finding and could be seen in the setting of an enteritis. Correlate clinically. 2. Moderate constipation. 3. Normal appendix. 4. The spleen is atrophic and densely calcified, which can be seen in the setting of sickle cell disease. Correlate with the medical history. 5. There are small pulmonary cysts versus mild emphysematous change noted at the lung bases. 6. There is cholelithiasis versus vicariously excreted contrast within the gallbladder. 7. Additional findings as above. ACT 112: Negative or not required by law. Electronically signed by: Juan Carlos Hawkins M.D. 05/07/2025 12:[address] 05/07/25 16:28 EXAMINATION: Head CT without CLINICAL HISTORY: First morning headaches PRIORS: None TECHNIQUE: Contiguous axial images were obtained through the head without the use of intravenous contrast. Sagittal and coronal reformations are supplied. FINDINGS: Appropriate parenchymal volume is noted. Ferrera-white differentiation is preserved. No edema or midline shift. No intra-axial or extra-axial hemorrhage. Ventricles are normal in size and configuration. Brainstem and cerebellum have a normal appearance. Calvarium unremarkable. Paranasal sinuses and mastoid air cells are well-pneumatized. Globes are intact. No retrobulbar abnormality. IMPRESSION: No CT evidence of an acute intracranial abnormality. If clinically appropriate, brain MRI could be obtained as appropriate. Electronically signed by Krystle Valladares 05-07-2025 4:36 PM Medications Administered Current Inpatient Medications Acetaminophen (Acetaminophen 325 Mg Tab) 650 mg PO Q4H PRN PRN Reason: Pain or Fever Stop: 06/06/25 00:44 Last Admin: 05/08/25 06:15 Dose: 650 mg Docusate Sodium (Docusate Sodium 100 Mg Cap) 100 mg PO BID PRN PRN Reason: Constipation Stop: 06/06/25 00:44 Ceftriaxone Sodium (Rocephin) 2,000 mg in 50 mls @ 100 mls/hr IV Q24H VANIA Stop: 05/09/25 21:59 Last Infusion: 05/07/25 22:35 Dose: Infused Ondansetron HCl (Ondansetron Inj 2 Mg/Ml 2 Ml Vial) 4 mg IV Q6H PRN PRN Reason: Nausea And Vomiting Stop: 06/06/25 00:44 (2) Leukocytosis Leukocytosis type: unspecified Qualified Code(s): D72.829 - Elevated white blood cell count, unspecified
[2025-05-08 11:54] LABS: Alanine Aminotransferase 13.0 U/L (7-52); Albumin Globulin Ratio 1.1 (0.9-2); Albumin Level 3.9 gm/dl (3.4-5.0); Alkaline Phosphatase 67.0 U/L (34-104); Anion Gap 7.0 (3-11); Bilirubin,Total 1.6 mg/dl (0.2-1.0); Blood Urea Nitrogen 11.0 mg/dl (6-23); Calcium 8.6 mg/dl (8.6-10.3); Carbon Dioxide 23.0 mmol/L (21-32); Chloride 105.0 mmol/L (98-107); Creatinine Clr Calc Pharmacy 103.1 ml/min; Globulin 3.5 gm/dl (2.5-4.0); Glucose 88.0 mg/dl (70-99(Fasting)); Potassium 3.9 mmol/L (3.5-5.1); Sodium 135.0 mmol/L (136-145); Total Protein 7.4 gm/dl (6.0-8.3)
--- NOTE | 2025-05-08 12:07 | Hospitalist Progress Note ---
Date of Service May 08, 2025 Assessment & Plan (1) Enterovirus infection: Plan: Febrile illness, 3 days of fever/chills, headache [employer] was enterovirus positive, Bio[employer] negative on admit. Continues to have high fevers and appears clinically unwell. He endorses intermittent headaches which come and go with his fever in the last 3 days. He reports in the last 3 months he has had occasional morning headaches which go away but have awakened him from sleep. 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 He did have fevers around that time which improved and he thought was a viral illness and recovered from this. He reports he felt well through the zambrano mmer and early fall and did not have tertian/~q48 hour fever suggestive of Plasmodium vivax. He has been here for several months and is outside of the expected window for open of symptoms related to dengue. CHIKV unlikely and no joint pain. HIV pending. AST/ALT are not elevated suggestive of hepatitis. CTAchest with no evidence of PE. No airspace consolidations. No pleural effusion or pneumothorax CTA/P: Fluid-filled loops of small bowel consistent with enteritis. Normal appendix. Moderate constipation. Small pulmonary cyst versus mild emphysematous changes at lung bases. Cholelithiasis versus vicarious excreted contrast within the gallbladder. Spleen is atrophic and densely calcified consistent with sickle cell disease. Total bilirubin is elevated likely from some intravascular hemolysis related to hemoglobinopathy. transaminitis and alk phos are not elevated, profile is not consistent with obstructive biliary disease. Total bilirubin downtrending 05/08 Peripheral smear: Target cells, polychromasia, irregular cells noted compatible with SC versus hemoglobin C disease. No parasites noted Hemoglobin electrophoresis pending CTA/P shows calcified atrophic spleen consistent with sickle disease.. Some enteritis. He denies diarrhea. Rocephin continued HIV negative. Monospot negative. Reflex EBV titers consistent with prior exposure LP was performed 05/07 due to recurrent fevers, leukocytosis headache with intermittent photosensitivity. Colorless. WBC 1. RBC 1. Glucose 64. Total protein 29.1. Viral PCR negative. Fortunately tap was not consistent with bacterial meningitis, Gram stain did not show any organisms. Send out infectious testing pending. Leukocytosis remains elevated, no left shift Reviewed with ID. Will hold Rocephin. Continue to follow. May be a severe postviral reaction. Headache - He reports intermittent headache of around 3 months. Denies vision change. No focal weakness or extremity changes. No loss of consciousness. No history of seizures. In the previous 3 months he has had headache in the morning which sometimes awaken him from sleep. He reports that intermittently his headache will get worse sometimes along with his fevers and sweats and then periodically gets better. Headache is worse in the last 3 days with this illness. He has had some new photosensitivity which has waxed and waned in the last 2 days CThead no acute findings LP bland Sickle cell disease versus SC disease Suspected SC versus C disease based on peripheral smear Hemoglobinopathy panel pending send out, this is a reference test and will not be available this hospitalization Continue IV fluids, hydration. Does not have severe pain suggestive of vaso- occlusive crisis although is with some hyperbilirubinemia and anemia suggestive of some hemolysis CTA/P shows atrophic calcified spleen consistent with sickle cell disease. He is at risk for functional asplenia Has not yet had his routine vaccinations and is a student. Recommend vaccination plan to include pneumococcal, haemophilus influenza B, MenACWY + MenB & strep pneumo SCD may contribute to some demargination No evidence of chest syndrome clinically or radiographically DVT prophylaxis: Increased risk due to suspected underlying sickle disease, no active bleeding. Will start Lovenox 24 hours after LP (2) Sickle cell anemia: (3) Secondary pneumonia: Admission and Anticipated Discharge Date Admission Date: May 06, 2025 Subjective Seen at the bedside. He reports he actually feels much better today. Continues to have some intermittent neck stiffness although his headache is improving. He actually feels about 70% better today compared to yesterday Reports he felt a little feverish last night, but better since this morning No post LP headache Continues to have some left ear pressure. Denies other symptoms. Denies bleeding Denies lightheadedness or dizziness Eating and drinking okay Physical Exam Physical Exam: General: A&Ox3. NAD. Cooperative. Skin is warm, moist HEENT: Atraumatic, normocephalic. Vision and hearing grossly intact. No photosensitivity. Pupils equal and reactive to light. TMs bilaterally with some fluid but no erythema/injection/purulence Pulm: CTAB A&P. -wheezes, -rales, -rhonchi. Symmetrical chest rise. No increased work of breathing. No respiratory distress. Cardiac: Regular, tachycardic, -mrg. Radial pulses intact and symmetrical. Abdominal: Right lower quadrant tender to palpation. No rebound or guarding. No right upper quadrant tenderness Extremities: Warm, dry Results & Data Results & Data Vital Signs (Past 12 Hours) Vital Signs Temp Pulse Resp BP Pulse Ox O2 Del Method 05/08/25 11:06 Room Air 05/08/25 07:30 37.2 C 85 18 92/53 L 95 Room Air 05/08/25 01:15 38.2 C H 94 H 16 118/63 99 Room Air 05/08/25 01:15 Room Air 05/08/25 00:00 38.3 C H 106 H 20 111/59 L 97 Room Air PG Care Time/CCT Total # of Minutes Spent Total Time Spent with Patient: Total time spent is greater than 50% in coordination of care (as documented) at patient's floor/unit and/or counseling patient: Coding Level of Care Code 09054 SUB INP/OBS CARE 3/50MIN Diagnoses Enterovirus infection B34.1 Sickle cell anemia D57.1 Secondary pneumonia J18.9
[2025-05-08 13:45] LABS: Hematocrit (blood only) 39.5 % (42.0-52.0); Hemoglobin 14.5 g/dL (14.0-18.0); Mean Corpuscular Hemoglobin 30.2 pg (25.0-34.0); Mean Corpuscular Volume 82.3 fL (80.0-100.0); Platelet Count 215 K/uL (130-400); RDW Standard Deviation 40.7 fL (36.4-46.3); Red Blood Count 4.80 M/uL (4.70-6.10); White Blood Count 28.60 K/ul (4.8-10.8)
[2025-05-08 13:46] LABS: Immature Granulocytes # (auto) 0.20 K/uL (0.01-0.20); Immature Granulocytes % (auto) 0.7 %; Polychromasia 1+; Target Cells 3+; Toxic Vacuolation 1+
[2025-05-08] MEDS: PLASMA-LYTE A 1,000 ML IV SCH (14:32)
[2025-05-08 23:30] VITALS: RESP 16
[2025-05-09 06:31] LABS: Alanine Aminotransferase 18.0 U/L (7-52); Albumin Globulin Ratio 1.1 (0.9-2); Albumin Level 3.9 gm/dl (3.4-5.0); Alkaline Phosphatase 62.0 U/L (34-104); Anion Gap 6.0 (3-11); Bilirubin,Total 1.8 mg/dl (0.2-1.0); Blood Urea Nitrogen 12.0 mg/dl (6-23); Calcium 8.5 mg/dl (8.6-10.3); Carbon Dioxide 24.0 mmol/L (21-32); Chloride 107.0 mmol/L (98-107); Creatinine Clr Calc Pharmacy 118.2 ml/min; Globulin 3.4 gm/dl (2.5-4.0); Glucose 103.0 mg/dl (70-99(Fasting)); Potassium 4.1 mmol/L (3.5-5.1); Sodium 137.0 mmol/L (136-145); Total Protein 7.3 gm/dl (6.0-8.3)
[2025-05-09 06:49] LABS: Hematocrit (blood only) 32.0 % (42.0-52.0); Hemoglobin 12.0 g/dL (14.0-18.0); Mean Corpuscular Hemoglobin 30.8 pg (25.0-34.0); Mean Corpuscular Volume 82.1 fL (80.0-100.0); Platelet Count 280 K/uL (130-400); RDW Standard Deviation 40.0 fL (36.4-46.3); Red Blood Count 3.90 M/uL (4.70-6.10); White Blood Count 17.35 K/ul (4.8-10.8)
[2025-05-09 06:54] LABS: Immature Granulocytes # (auto) 0.10 K/uL (0.01-0.20); Immature Granulocytes % (auto) 0.6 %; Polychromasia 1+; Target Cells 3+; Toxic Vacuolation 1+
[2025-05-09 07:12] VITALS: BP 108/67; PULSE 88; TEMP 99.5; O2SAT 98
--- NOTE | 2025-05-09 09:03 | Discharge Summary ---
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 He has a history of frequent illnesses while living [facility], noting he typically will get fevers and feel poorly for 3 to 4 days but then get better after this. He was recently told that he may have a sickle trait or sickle disease. He has had chronic headaches without aura for the last couple of months however he presents to the hospital after he had 3-4 days of worsening fever, headache intermittent photosensitivity and generally feeling much more poor than typical and with longer symptoms than he had in the past. He was reportedly positive for entero-/rhinovirus at [facility]. His bio fire was negative for this in the emergency department. He was recommended for admission due to ongoing febrile illness with an elevated white count. He was covered with Rocephin. CTA-/P, CTA chest did not show any evidence of infectious pathology. Otoscopic exam showed some clear fluid in the TM bilaterally but no injection/erythema/purulence after his initial admission he felt worse and continued to be febrile with a rising leukocytosis up to 26, although without a left shift. On review of his CTA/P had a atrophic calcified spleen likely related to sickle disease, placing him at risk of functional asplenia. He also had not received any vaccinations. Peripheral smear showed target cells polychromasia and irregular cells compatible with SC disease versus hemoglobin C disease. No parasitic disease was noted. Monospot was negative and reflex serology was consistent with prior EBV exposure. Due to continued fevers, leukocytosis, headache with some intermittent photosensitivity and a patient at risk with possible functional asplenia and nonvaccinated status his workup was expanded and ID was consulted. He was able to flex rotate and extend his neck with full range of motion and had no nuchal rigidity or midline spinal tenderness to palpation, but other components of exam more not reassuring and without any other clear source of leukocytosis atypical for viral infection was recommended for LP. This was performed at the bedside LP was bland. CSF white count, glucose, and protein were all normal. No organisms were seen on Gram stain. Final cultures were pending and viral testing was pending. CSF PCR was negative. Blood cultures negative HIV testing was negative Case was discussed with ID. As extensive workup above was negative, and patient felt he had clinical improvement the next day and no bacterial source was identified ceftriaxone was discontinued. The following day he continued to subsequently improved and said he felt well and nearing baseline and requested discharge home. His leukocytosis was downtrending and continued to have no left shift. He had defervesced and was afebrile x 24 hours. Blood cultures remained negative Discussed continued observation for an additional day versus close outpatient follow-up with Mr. Nash. He felt that he was nearly back to baseline 05/09 with some intermittent headache which was similar to his chronic headaches in the past few months and better than the new worsened headaches that it brought him in. No ongoing photosensitivity. He preferred discharge home with close follow-up which given his normal vitals, downtrending leukocytosis, clinical improvement was reasonable with close follow-up precautions. To do as outpatient: 1. Febrile illness With course as above. Differential includes viral. No evidence of bacterial infection on workup. White count was downtrending after antibiotics were discontinued and did not have a left shift and patient had just reassessed. Repeat CBC, CMP within 1 week If any clinical deterioration, worsening, persistent fevers should return to the ER for reevaluation Follow-up final CSF and viral testing send outs 2. 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 No AST/ALT elevation. Presentation and eval was not consistent with obstructive presentation. Hemoglobin was stable, mild hemolysis was suspected. He did not show any evidence of severe sickle crisis or chest syndrome Hemoglobinopathy confirmation pending at time of discharge Follow-up to hematology within 1 month 3. 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 Continues to have high fevers and appears clinically unwell. He endorses intermittent headaches which come and go with his fever in the last 3 days. He reports in the last 3 months he has had occasional morning headaches which go away but have awakened him from sleep. 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 He did have fevers around that time which improved and he thought was a viral illness and recovered from this. He reports he felt well through the summer and early fall and did not have tertian/~q48 hour fever suggestive of Plasmodium vivax. He has been here for several months and is outside of the expected window for open of symptoms related to dengue. CHIKV unlikely and no joint pain. HIV pending. AST/ALT are not elevated suggestive of hepatitis. CTAchest with no evidence of PE. No airspace consolidations. No pleural effusion or pneumothorax CTA/P: Fluid-filled loops of small bowel consistent with enteritis. Normal appendix. Moderate constipation. Small pulmonary cyst versus mild emphysematous changes at lung bases. Cholelithiasis versus vicarious excreted contrast within the gallbladder. Spleen is atrophic and densely calcified consistent with sickle cell disease. Total bilirubin is elevated likely from some intravascular hemolysis related to hemoglobinopathy. transaminitis and alk phos are not elevated, profile is not consistent with obstructive biliary disease. Total bilirubin downtrending 05/08 Peripheral smear: Target cells, polychromasia, irregular cells noted compatible with SC versus hemoglobin C disease. No parasites noted Hemoglobin electrophoresis pending CTA/P shows calcified atrophic spleen consistent with sickle disease.. Some enteritis. He denies diarrhea. Rocephin continued HIV negative. Monospot negative. Reflex EBV titers consistent with prior exposure LP was performed 05/07 due to recurrent fevers, leukocytosis headache with intermittent photosensitivity. Colorless. WBC 1. RBC 1. Glucose 64. Total protein 29.1. Viral PCR negative. Fortunately tap was not consistent with bacterial meningitis, Gram stain did not show any organisms. Send out infectious testing pending. Leukocytosis remains elevated, no left shift Reviewed with ID. Rocephin held/ May be a severe postviral reaction. Headache - He reports intermittent headache of around 3 months. Denies vision change. No focal weakness or extremity changes. No loss of consciousness. No history of seizures. In the previous 3 months he has had headache in the morning which sometimes awaken him from sleep. He reports that intermittently his headache will get worse sometimes along with his fevers and sweats and then periodically gets better. Headache is worse in the last 3 days with this illness. He has had some new photosensitivity which has waxed and waned in the last 2 days CThead no acute findings LP bland Headache greatly improved, near his normal baseline of prior headaches at time of discharge Sickle cell disease versus SC disease Suspected SC versus C disease based on peripheral smear Hemoglobinopathy panel pending send out, this is a reference test and will not be available this hospitalization Continue IV fluids, hydration. Does not have severe pain suggestive of vaso- occlusive crisis although is with some hyperbilirubinemia and anemia suggestive of some hemolysis CTA/P shows atrophic calcified spleen consistent with sickle cell disease. He is at risk for functional asplenia Has not yet had his routine vaccinations and is a student. Recommend vaccination plan to include pneumococcal, haemophilus influenza B, MenACWY + MenB & strep pneumo SCD may contribute to some demargination No evidence of chest syndrome clinically or radiographically (2) Sickle cell anemia: (3) Secondary pneumonia: Admission HPI Per Admitting Provider Donaldo Nash is a 29yo male with no significan medical or surgical history presenting with three days of flu-like symptoms. Patient reports fever, chills, body aches as well as cough productive for blood-streaked sputum. He has some shortness of breath. Ongoing severe headache. He denies chest pain, nausea, vomiting, diarrhea. Patient is a [employer] student - lives with room mates. No sick contacts. Patient was seen at [facility] and found to be POSITIVE for Enterovirus. ER Course: NSS x 1L Tylenol Ceftriaxone 2gm Discharge Exam General: A&Ox3. NAD. Cooperative. HEENT: Atraumatic, normocephalic. Vision and hearing grossly intact. No midline spinal tenderness to palpation endorses some mild aches in his shoulders bilaterally, improving. No photosensitive/phono sensitivity on exam Pulm: CTAB A&P. -wheezes, -rales, -rhonchi. Symmetrical chest rise. No increased work of breathing. No respiratory distress. Cardiac: RRR, -mrg. Radial pulses intact and symmetrical. Abdominal: Nontender, nondistended, soft. BS present. Extremities: Warm, dry. Moves all extremities equally. Oxidation Engineer strength, hip flexion, ankle dorsiflexion/plantarflexion 5/5. Cap refill brisk in the hands and feet bilaterally Discharge Plan Discharge Items Patient Disposition: Home - Self-Care Reason For Visit: Febrile Illness Discharge Diagnosis: Suspected postviral syndrome Sickle cell versus target cell disease with risk of asplenism Condition on Discharge: Good Activity: Resume your previous activity Non-emergency contact: Primary Care Provider Call non-emergency contact if: you have any medication questions, your symptoms worsen and your pain is not controlled Follow-up/Referrals: Lianne Maradiaga MD [Physician] - (F/u of sickle cell vs target cell disease) Marty Sanchez MD [Resident] - (Followup with [facility]isa within 1 week) Diet: Regular Addtl Attending Provider Instructions: You were seen in the hospital for fevers, headache, sensitivity to light, neck pain. You had a very high white blood cell count and had an expanded workup to rule out various bacterial infections including meningitis. You are at increased risk of meningitis and other infections as your spleen is atrophic likely due to underlying sickle cell or target cell disease. Infectious ease was consulted during your case. You clinically improved and antibiotics were held and your white count began to rapidly improve however was not yet normal at time of discharge. Your fevers had improved at time of discharge. Follow-up is being scheduled for you with [facility]. Is recommended that you follow-up with a dedicated primary care physician/family physician due to the complexity of your history. You should have follow-up blood work including a blood count and CMP performed within 1 week to ensure continued improvement. Your primary care provider will also need to follow-up on the final results of send out viral testing and CFS testing which was drawn during admission, but will not be available for at least several days. You were evaluated for but fortunately did not show evidence of bacterial meningitis during admission. You are at increased risk of meningitis both due to not yet having routine vaccinations, and due to being at risk of functional asplenia related to suspected sickle cell disease. You should have all routine vaccinations started within approximately 1 week as long as you recover well and remain afebrile, and in addition should have meningococcal, pneumococcal, and HIV vaccines due to your atrophic spleen. Recommendations for this have been sent along with the discharge summary to the [facility] primary care office. If you have any recurrent fevers, or you have new or worsening symptoms please seek prompt medical reevaluation. A peripheral smear of your blood was performed during admission. You likely have a variant of sickle cell disease, or a related blood cell disorder called target cell disease (Hb SA, SC, or C disease). Final testing was pending at time of discharge, results should be available as an outpatient to confirm which variation you have. Oxygen carrying crises or reactions to illnesses can exacerbate this disease and can sometimes contribute to elevated white counts. Due to your unusually high white count, history of frequent illnesses and reactions, and likely underlying hemoglobinopathy you have been referred to a mold mechanic as an outpatient. You should be seen within 1 month. You are mildly anemic during admission, likely related to this. He did not show ongoing signs of a sickle cell crisis at time of discharge. You have been started on vitamin B12 and folic acid which can help regenerate blood cells and anemia. Your hemoglobin (blood level) was 12.0 at time of discharge. If you develop any new or worsening symptoms including fever, chills, sweats, chest pain, chest pressure, difficulty breathing, uncontrolled nausea/vomiting, rash, wheezing, passing out or nearly passing out, bleeding, black/bloody bowel movements, or other new or concerning symptoms please call your primary care physician, or call 911 for re-evaluation in the emergency department if you are very concerned. Pending Studies at Discharge: No Stand-Alone Forms: My [facility] [employer], Work/School Release, Smoking Cessation Medications and DC Order Prescriptions: New folic acid 1 mg tablet 1 mg PO DAILY Qty: 30 0RF cyanocobalamin (vitamin B-12) 1,000 mcg tablet 1,000 mcg PO DAILY Qty: 30 0RF Discharge Orders: Discharge Order (Routine); Ordered 05/09/25 Ordered By: Shun Hadley/Other Patient Handouts: Enteroviruses in Children, Sickle Cell Anemia Admission Data Admit Date/Time: 05/06/25 23:09 Attending Provider: Shun Maravilla Admit Provider: Dominique Washington Primary Care Provider: [facility] Other Providers: Dominique Washington; Kathi Baer; Josue Grissom Antonie J.; Heike Drummond; Jackie Cruz; Liban Lee Other Interventions: Discharge Summary Assessment (RN) Last Done: 05/09/25 11:45 Hospital Stay Data Consultations 05/06/25 22:38 ED Decision to Admit Stat 05/07/25 14:01 Consult Infectious Diseases Stat Diagnostic Imagining Performed 05/06/25 20:09 CT for pulmonary embolism PE [CT angio chest PE protocol] Stat 05/07/25 11:24 CT Abd and Pelvis [CT abd pelvis IV con only] Stat 05/07/25 16:28 CT head/brain wo con Stat Discharge Instructions Given to Patient (Per Discharging Provider) You were seen in the hospital for fevers, headache, sensitivity to light, neck pain. You had a very high white blood cell count and had an expanded workup to rule out various bacterial infections including meningitis. You are at increased risk of meningitis and other infections as your spleen is atrophic likely due to underlying sickle cell or target cell disease. Infectious ease was consulted during your case. You clinically improved and antibiotics were held and your white count began to rapidly improve however was not yet normal at time of discharge. Your fevers had improved at time of discharge. Follow-up is being scheduled for you with [facility]. Is recommended that you follow-up with a dedicated primary care physician/family physician due to the complexity of your history. You should have follow-up blood work includ ing a blood count and CMP performed within 1 week to ensure continued improvement. Your primary care provider will also need to follow-up on the final results of send out viral testing and CFS testing which was drawn during admission, but will not be available for at least several days. You were evaluated for but fortunately did not show evidence of bacterial meningitis during admission. You are at increased risk of meningitis both due to not yet having routine vaccinations, and due to being at risk of functional asplenia related to suspected sickle cell disease. You should have all routine vaccinations started within approximately 1 week as long as you recover well and remain afebrile, and in addition should have meningococcal, pneumococcal, and HIV vaccines due to your atrophic spleen. Recommendations for this have been sent along with the discharge summary to the [facility] primary care office. If you have any recurrent fevers, or you have new or worsening symptoms please seek prompt medical reevaluation. A peripheral smear of your blood was performed during admission. You likely have a variant of sickle cell disease, or a related blood cell disorder called target cell disease (Hb SA, SC, or C disease). Final testing was pending at time of discharge, results should be available as an outpatient to confirm which variation you have. Oxygen carrying crises or reactions to illnesses can exacerbate this disease and can sometimes contribute to elevated white counts. Due to your unusually high white count, history of frequent illnesses and reactions, and likely underlying hemoglobinopathy you have been referred to a mold mechanic as an outpatient. You should be seen within 1 month. You are mildly anemic during admission, likely related to this. He did not show ongoing signs of a sickle cell crisis at time of discharge. You have been started on vitamin B12 and folic acid which can help regenerate blood cells and anemia. Your hemoglobin (blood level) was 12.0 at time of discharge. If you develop any new or worsening symptoms including fever, chills, sweats, chest pain, chest pressure, difficulty breathing, uncontrolled nausea/vomiting, rash, wheezing, passing out or nearly passing out, bleeding, black/bloody bowel movements, or other new or concerning symptoms please call your primary care physician, or call 911 for re-evaluation in the emergency department if you are very concerned. Total Time Total Time Spent Total Time Spent (In Minutes): 55 Coding Level of Care Code 98816 INP/OBS DISCH >30 MIN Diagnoses Enterovirus infection B34.1 Sickle cell anemia D57.1 Secondary pneumonia J18.9
[2025-05-09] MEDS: INFLUENZA VACC TS2025-26(6m+)/PF (IIV3) 0.5mL Syr IM ONE (11:12)
[2025-05-12 19:46] LABS: EBV DNA, Quant Log Not Detected Log cps/mL
[2025-05-13 15:37] LABS: CSF, LDH 10 U/L (<=25)
[2025-05-14 07:23] LABS: Source CSF; West Nile Virus, PCR Source CSF; West Nile Virus, PCR, CSF NOT DETECTED (NOT DETECTED)
[2025-05-16 01:12] LABS: HCT 36.5 % (39.4-51.1); HGB 12.2 g/dL (13.2-17.1); MCH 31.0 pg (27.0-33.0); MCV 92.6 fL (81.4-101.7); RBC 3.94 Mill/uL (4.20-5.80); RDW 13.9 % (11.0-15.0)
== END 2025-05-09 15:20 | disposition home or self-care (01) ==
LOC: SUATTDRO → 2N 18:06 → ED 18:06 → SUATTDRO 23:09 → 2N 05-07 00:10 → 3E 05-08 01:24